=== PATIENT | male | born 1990 | race Caucasian/White ===

== ENCOUNTER 2017-11-20 13:21 | Emergency (ER) | payer BC ==
[2017-11-20] MEDS ORDERED: Ketorolac 60 MG/2 ML SDV IM ONE (14:53)
--- NOTE | 2017-11-21 09:53 | EDM.PDOC ---
ED HPI GENERAL MEDICAL PROBLEM - General Chief Complaint: Back Pain or Injury Stated Complaint: BACK PAIN Time Seen by Provider: 11/20/17 13:57 Source of Information: Reports: Patient History Limitations: Reports: No Limitations - History of Present Illness INITIAL COMMENTS - FREE TEXT/NARRATIVE: 27 YR OLD MALE INJURED MID BACK YESTERDAY PICKING UP BOX OF BOLTS AT WORK AND NOW HAS MOD PAIN LEFT T 7,8,9 PARASPINAL AREA 3 YRS AGO HAD RENAL STONE PASSED, AND PAIN DOES NOT FEEL LIKE A STONE, HAS SLIGHT NAUSEA, PAIN IS 4/10 NOW BUT WHEN MOVES OR TAKES A DEEP BREATH3 THE PAIN IS 9/10 Location: Reports: Back Quality: Reports: Ache, Sharp Severity: Moderate Improves with: Reports: Immobilization Worsens with: Reports: Movement Context: Reports: Lifting Associated Symptoms: Reports: No Other Symptoms Treatments C CONSULTANT: Reports: Acetaminophen, NSAIDS Mid-back Pain Score (Numeric/FACES): 4 - Related Data Allergies Allergy/AdvReac Type Severity Reaction Status Date / Time No Known Allergies Allergy Verified 11/20/17 13:43 Home Meds: Home Meds Cyclobenzaprine [Flexeril] 10 mg PO TID PRN #21 tab 11/20/17 [Rx] Past Medical History HEENT History: Reports: Sinusitis Gastrointestinal History: Reports: None Genitourinary History: Reports: Renal Calculus Musculoskeletal History: Reports: Fracture Other Musculoskeletal History: hx fx R foot, bilat rib fx, fx fingers, Neurological History: Reports: Brain Injury, Concussion - Infectious Disease History Infectious Disease History: Reports: Chicken Pox - Past Surgical History HEENT Surgical History: Reports: Other (See Below) Other HEENT Surgeries/Procedures: sinus surgery GI Surgical History: Reports: None Neurological Surgical History: Reports: None Musculoskeletal Surgical History: Reports: None Social & Family History - Family History Family Medical History: Noncontributory - Tobacco Use Smoking Status *Q: Never Smoker - Caffeine Use Caffeine Use: Reports: Tea - Alcohol Use Days Per Week of Alcohol Use: 2 Number of Drinks Per Day: 4 Total Drinks Per Week: 8 - Recreational Drug Use Recreational Drug Use: No ED ROS GENERAL - Review of Systems Review Of Systems: See Below Constitutional: Reports: No Symptoms HEENT: Reports: No Symptoms Respiratory: Reports: No Symptoms Cardiovascular: Reports: No Symptoms Endocrine: Reports: No Symptoms GI/Abdominal: Reports: No Symptoms : Reports: No Symptoms Musculoskeletal: Reports: Back Pain Skin: Reports: No Symptoms Neurological: Reports: No Symptoms Psychiatric: Reports: No Symptoms Hematologic/Lymphatic: Reports: No Symptoms Immunologic: Reports: No Symptoms ED EXAM, UPPER BACK/NECK PAIN - Physical Exam Exam: See Below Text/Narrative:: LEFT 7,8,9, PARASPINAL MUSCLE PAIN AN SPASM, NO INTERSPINAL LIGAMENTOUS PAIN Exam Limited By: No Limitations General Appearance: Alert, Moderate Distress Eye Exam: Bilateral Eye: Normal Inspection Ears Exam: Normal External Exam Nose Exam: Normal Inspection Throat/Mouth Exam: Normal Oropharynx, Normal Voice, No Airway Compromise Head Exam: Atraumatic, Normocephalic Neck Exam: Non-Tender Cardiovascular/Respiratory: Regular Rate, Rhythm GI/Abdominal: Normal Bowel Sounds (Male) Exam: No Hernia, Normal Inspection Back Exam: Paraspinal Tenderness Extremities: Normal Inspection 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, No Motor/Sensory Deficits, Alert, Normal Mood/Affect, Oriented x 3 DTR: 1+: Bicep (R), Bicep (L), Patella (R), Patella (L), Achilles (R), Achilles (L) Psychiatric: Normal Affect Course - Vital Signs Last Recorded V/S: Last Vital Signs Temp 37.2 C 11/20/17 13:35 Pulse 94 11/20/17 13:35 Resp 18 11/20/17 15:04 BP 138/89 11/20/17 15:04 Pulse Ox 100 11/20/17 15:04 - Orders/Labs/Meds Labs: Laboratory Tests 11/20/17 Range/Units 14:00 Urine Color Yellow (YELLOW) Urine Appearance Clear (CLEAR) Urine pH 6.0 (5.0-6.5) Ur Specific [place] 1.015 (1.010-1.025) Urine Protein Negative (NEGATIVE) mg/dL Urine Glucose (UA) Normal (NEGATIVE) mg/dL Urine Ketones Negative (NEGATIVE) mg/dL Urine Occult Blood Negative (NEGATIVE) Urine Nitrite Negative (NEGATIVE) Urine Bilirubin Negative (NEGATIVE) Urine Urobilinogen Normal (NEGATIVE) mg/dL Ur Leukocyte Esterase Negative (NEGATIVE) Urine WBC 0-5 (0) Ur Squamous Epith Cells Occasional (NS,R,O) Urine Bacteria Few H (NS) Meds: Medications Discontinued Medications Generic Name Dose Route Start Last Admin Trade Name Freq PRN Reason Stop Dose Admin Ketorolac Tromethamine 60 mg 11/20/17 14:53 11/20/17 14:59 Toradol IM 11/20/17 14:54 60 mg ONETIME ONE Administration Orphenadrine Citrate 60 mg 11/20/17 15:00 11/20/17 14:59 Norflex IM 60 mg Q12H MINNA Administration Departure - Departure Time of Disposition: 14:45 Disposition: Home, Self-Care 01 Clinical Impression: Strain of thoracic paraspinal muscles excluding T1 and T2 levels Qualifiers: Encounter type: initial encounter Qualified Code(s): S29.012A - Strain of muscle and tendon of back wall of thorax, initial encounter - Discharge Information *PRESCRIPTION DRUG MONITORING PROGRAM REVIEWED*: No *COPY OF PRESCRIPTION DRUG MONITORING REPORT IN PATIENT JIM: No Prescriptions: Cyclobenzaprine [Flexeril] 10 mg PO TID PRN #21 tab PRN Reason: Spasms Instructions: Ketorolac injection, Orphenadrine injection, Back Pain, Adult, [id number] Referrals: PCP,Not In Area [Primary Care Provider] - Forms: ED Department Discharge, ED Return to Work/School Form Additional Instructions: flexeril for muscle spasm every 6-8 hours 1000 mg tylenol and 600 mg ibuprofen every 6 hours (take either toradol or ibuprofen but not both together walking is most important therapeutic measure to stop the left back muscle spasm follow up with your MD 1 week may return to work Wednesday11/22/1917
== END 2017-11-20 15:14 | disposition home or self-care (01) ==
LOC: FB.ED 13:21
DX: S29.012A Strain of muscle and tendon of back wall of thorax, initial encounter (principal); X50.0XXA Overexertion from strenuous movement or load, initial encounter
CPT/HCPCS: 81001; 96372; 99283; J1885; J2360

== ENCOUNTER 2017-11-20 22:09 | Emergency (ER) | payer BC ==
[2017-11-20] MEDS ORDERED: HYDROmorphone 2 MG/ML SDV IM ONE (22:51)
[2017-11-20] MEDS ORDERED: Acetaminophen/HYDROcodone 325-5 MG Tab PO ONE (23:11)
--- NOTE | 2017-11-21 10:18 | EDM.PDOC ---
ED HPI GENERAL MEDICAL PROBLEM - General Chief Complaint: Back Pain or Injury Stated Complaint: BACK PAIN Time Seen by Provider: 11/20/17 22:45 Source of Information: Reports: Patient History Limitations: Reports: No Limitations - History of Present Illness INITIAL COMMENTS - FREE TEXT/NARRATIVE: CYN WAS SEEN EARLIER IN THE DAY FOR T7,8,9, PAIN PARASPINAL MUSCLES AND NOW COMES BACK BECAUSE HE WANTS SOMETHING MORE THAN THE FLEXERIL AND TYLENOL OR IBUPROFEN FOR THE PAIN Location: Reports: Other (PARASPINAL THORAX 7,8,9 LEVEL) Severity: Moderate Improves with: Reports: Medication Worsens with: Reports: Movement Context: Reports: Lifting Associated Symptoms: Reports: No Other Symptoms Treatments CREATIVE WRITER: Reports: Acetaminophen, Other (see below) (NSAID, FLEXERIL) lower back Pain Score (Numeric/FACES): 4 - Related Data Allergies Allergy/AdvReac Type Severity Reaction Status Date / Time No Known Allergies Allergy Verified 11/20/17 13:43 Home Meds: Home Meds Cyclobenzaprine [Flexeril] 10 mg PO TID PRN #21 tab 11/20/17 [Rx] Past Medical History HEENT History: Reports: Sinusitis Gastrointestinal History: Reports: None Genitourinary History: Reports: Renal Calculus Musculoskeletal History: Reports: Fracture Other Musculoskeletal History: hx fx R foot, bilat rib fx, fx fingers, Neurological History: Reports: Brain Injury, Concussion - Infectious Disease History Infectious Disease History: Reports: Chicken Pox - Past Surgical History HEENT Surgical History: Reports: Other (See Below) Other HEENT Surgeries/Procedures: sinus surgery GI Surgical History: Reports: None Neurological Surgical History: Reports: None Musculoskeletal Surgical History: Reports: None Social & Family History - Family History Family Medical History: Noncontributory - Tobacco Use Smoking Status *Q: Never Smoker - Caffeine Use Caffeine Use: Reports: None - Recreational Drug Use Recreational Drug Use: No ED ROS GENERAL - Review of Systems Review Of Systems: See Below Constitutional: Reports: No Symptoms HEENT: Reports: No Symptoms Respiratory: Reports: No Symptoms Cardiovascular: Reports: No Symptoms Endocrine: Reports: No Symptoms GI/Abdominal: Reports: Constipation : Reports: No Symptoms Musculoskeletal: Reports: No Symptoms Skin: Reports: No Symptoms Neurological: Reports: No Symptoms Psychiatric: Reports: No Symptoms Hematologic/Lymphatic: Reports: No Symptoms Immunologic: Reports: No Symptoms ED EXAM,LOWER BACK PAIN/INJURY - Physical Exam Exam: See Below Exam Limited By: No Limitations General Appearance: Alert, Mild Distress Eye Exam: Bilateral Eye: Normal Inspection Neck: Normal Inspection Respiratory/Chest: No Respiratory Distress, Lungs Clear, Normal Breath Sounds, No Accessory Muscle Use, Other (LEFT T 7,88,9 PSARASPINA APSSM IS GONE - NO LONGER PRESENT AM ND MILD DISCOMFORT, BUT MILD PAINIS REPRODUCIBLE WITH BACK END ROM ) Cardiovascular: Normal Peripheral Pulses, No Edema, No Gallop GI/Abdominal: Normal Bowel Sounds (Male) Exam: No Hernia Extremities: Normal Inspection Neurological: Alert, Normal Mood/Affect, Normal Dorsiflexion, CN II-XII Intact, Normal Plantar Flexion, Normal Gait DTR - Lower Extremities: 1+: Knee (R), Knee (L), Ankle (R), Ankle (L) Psychiatric: Normal Affect, Normal Mood, Anxious Skin Exam: Warm, Dry, Intact Lymphatic: No Adenopathy Course - Vital Signs Last Recorded V/S: Last Vital Signs Temp 37.0 C 11/20/17 23:21 Pulse 91 11/20/17 23:21 Resp 17 11/20/17 23:21 BP 135/92 H 11/20/17 23:21 Pulse Ox 100 11/20/17 23:21 - Orders/Labs/Meds Meds: Medications Discontinued Medications Generic Name Dose Route Start Last Admin Trade Name Homer PRN Reason Stop Dose Admin Hydromorphone HCl 2 mg 11/20/17 22:51 11/20/17 23:11 Dilaudid IM 11/20/17 22:52 2 mg ONETIME ONE Administration Departure - Departure Time of Disposition: 23:15 Disposition: Home, Self-Care 01 Clinical Impression: Thoracic back sprain Qualifiers: Encounter type: subsequent encounter Qualified Code(s): S23.9XXD - Sprain of unspecified parts of thorax, subsequent encounter - Discharge Information *PRESCRIPTION DRUG MONITORING PROGRAM REVIEWED*: No *COPY OF PRESCRIPTION DRUG MONITORING REPORT IN PATIENT JIM: No (HIS SUBJEVCTIVE PAIN WA OUT OF PROPORTION TO THE XAM, AND HE WA GIVEN MED TO APPEASE HIS SYMPTOMOLOGY) Instructions: Back Pain, Adult, [id number] Referrals: PCP,None [Primary Care Provider] - Forms: ED Department Discharge Additional Instructions: YOUR BACK SPASM IS GONE THE BACK PAIN YOU HAVE IS CONSIDERED TO BE NO T UNCOMMON AND NOT UNUSUAL FOR THE INJURY YOU HAD TODAY USE THE MED THAT WERE PRESCRIBED TODAY AND VICODIN DISPENSED THIS ASHLYN FOR PAIN NOT CONTROLLED BY TYELNOL AND IBUPROFEN SEE YOU MD IN THE NEXT 7-10 DAYS
== END 2017-11-20 23:21 | disposition home or self-care (01) ==
LOC: FB.ED 22:09
DX: S23.9XXD Sprain of unspecified parts of thorax, subsequent encounter (principal); X50.0XXD Overexertion from strenuous movement or load, subsequent encounter
CPT/HCPCS: 96372; 99283; J1170